=== PATIENT | male | born 1945 | race Caucasian/White ===

== ENCOUNTER 2018-04-21 20:12 | Inpatient (IN) | payer MEDICARE ==
[2018-04-21] MEDS ORDERED: SODIUM CHLORIDE 0.9% 500 ML 500 ML IV STA (20:49)
[2018-04-21] MEDS ORDERED: ONDANSETRON 4 MG/2 ML VIAL IVP STA (21:11)
[2018-04-21] MEDS ORDERED: MORPHINE SULFATE 4 MG/ML SYRINGE IVP STA (21:11)
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
[2018-04-21 22:11] LABS: Anisocytosis Slight; Basophils % (A) 0 %; Eosinophils # (A) 0.1 k/uL (0-0.7); Eosinophils % (A) 1 %; HCT 47.1 % (39.0-53.0); HGB 15.1 gm/dL (13.0-17.5); Lymphocytes # (A) 1.2 k/uL (1.0-4.8); Lymphocytes % (A) 9 %; MCH 26.9 pg (25.0-35.0); MCHC 32.1 g/dL (31.0-37.0); MCV 83.7 fL (80.0-100.0); Mean Platelet Volume 8.6; Monocytes # (A) 0.5 k/uL (0-1.0); Monocytes % (A) 4 %; Neutrophils # (A) 11.2 k/uL (1.3-7.7); Neutrophils % (A) 85 %; Platelet Count 140 k/uL (150-450); RBC 5.63 m/uL (4.30-5.90); RDW 16.4 % (11.5-15.5); WBC 13.2 k/uL (3.8-10.6)
[2018-04-21 22:19] LABS: INR 1.1 (<1.2); Partial Thromboplastin Time 22.9 sec (22.0-30.0); Prothrombin Time 11.3 sec (9.0-12.0)
[2018-04-21 22:28] LABS: ALT 27 U/L (21-72); AST 35 U/L (17-59); Albumin 4.5 g/dL (3.5-5.0); Alkaline Phosphatase 101 U/L (38-126); Amylase 82 U/L (30-110); Anion Gap 15 mmol/L; Blood Urea Nitrogen 17 mg/dL (9-20); Calcium 9.3 mg/dL (8.4-10.2); Carbon Dioxide 20 mmol/L (22-30); Chloride 101 mmol/L (98-107); Glucose 439 mg/dL (74-99); Lipase 361 U/L (23-300); Potassium 4.8 mmol/L (3.5-5.1); Sodium 136 mmol/L (137-145); Total Bilirubin 0.9 mg/dL (0.2-1.3); Total Protein 8.5 g/dL (6.3-8.2)
[2018-04-21] MEDS ORDERED: SODIUM CHLORIDE 0.9% 500 ML 500 ML IV ONE (23:13)
[2018-04-21] MEDS ORDERED: SODIUM CHLORIDE 0.9% 1,000 ML IV ONE (23:13)
--- NOTE | 2018-04-21 23:31 | CT ---
EXAMINATION TYPE: CT abdomen pelvis w con DATE OF EXAM: 04/21/2018 COMPARISON: None HISTORY: nausea and vomitting CT DLP: 2629 mGycm Automated exposure control for dose reduction was used. TECHNIQUE: Helical acquisition of images was performed from the lung bases through the pelvis. CONTRAST: Performed without Oral Contrast and with IV Contrast, patient injected with 100 mL of Isovue 300. FINDINGS: There are small pleural effusions. Heart is enlarged. There is no pericardial effusion. Stomach appears normal. Liver shows no focal defect. Spleen appears normal. There is no pancreatic ma ss. There is no adrenal mass. Kidneys show satisfactory contrast opacification. There is no hydroneph rosis. Ureters are not dilated. There is no retroperitoneal adenopathy. There is 1 cm cortical cyst a nterior left kidney. Bladder distends smoothly with contrast. There is no inguinal hernia. There is no free fluid in the p bri. There is no sign of a pelvic mass. There is small umbilical hernia that contains fat. Appendix appears normal. There is no mesenteric edema. There is no evidence of a bowel obstruction. There are spondylotic changes in the lower lumbar spine. I see no bony destructive process. Bony pelvis is int act. There is no evidence of free air. IMPRESSION: BILATERAL PLEURAL EFFUSIONS. NORMAL APPENDIX.
[2018-04-22] MEDS ORDERED: INSULIN REGULAR 100 UNIT/ML VIAL IV ONE (00:47)
--- NOTE | 2018-04-22 00:54 | XR ---
EXAMINATION TYPE: XR chest 2V DATE OF EXAM: 04/22/2018 COMPARISON: NONE HISTORY: Abdominal pain TECHNIQUE: Frontal and lateral views of the chest are obtained. FINDINGS: Heart appears enlarged. There is no heart failure. There is minimal subsegmental atelectas is. Lungs are clear of consolidation. There is no definite pleural effusion. IMPRESSION: Minimal subsegmental atelectasis. No heart failure seen.
[2018-04-22 01:35] LABS: Appearance,Urine Clear (Clear); Bacteria,Urine Rare /hpf; Bilirubin,Urine Negative (Negative); Blood,Urine Trace (Negative); Glucose,Urine (UA) 4+ (Negative); Leukocyte Esterase,Urine Negative (Negative); Mucus,Urine Rare /hpf; Nitrite,Urine Negative (Negative); PH, Urine 5.5 (5.0-8.0); Protein,Urine 1+ (Negative); RBC,Urine 1 /hpf (0-5); Specific Gravity,Urine 1.033 (1.001-1.035); Squamous Epithelial Cell,Urine <1 /hpf (0-4); Urobilinogen,Urine <2.0 mg/dL (<2.0); WBC,Urine <1 /hpf (0-5)
[2018-04-22] MEDS: INSULIN REGULAR 100 UNIT in SODIUM CHLORIDE 0.9% 100 ML IV SCH ×3 (01:59→17:52)
[2018-04-22 02:37] LABS: Ketones,Urine 2+ (Negative)
[2018-04-22 03:19] LABS: Glucose,Whole Blood 301 mg/dL (75-99)
[2018-04-22] MEDS ORDERED: LORazepam 2 MG/ML INJ IV STA (03:20)
[2018-04-22 03:45] LABS: Anion Gap 13 mmol/L; Blood Urea Nitrogen 18 mg/dL (9-20); Carbon Dioxide 23 mmol/L (22-30); Chloride 103 mmol/L (98-107); Glucose 286 mg/dL (74-99); Phosphorus 2.7 mg/dL (2.5-4.5); Potassium 4.1 mmol/L (3.5-5.1); Sodium 139 mmol/L (137-145)
[2018-04-22 04:20] LABS: Glucose,Whole Blood 224 mg/dL (75-99)
[2018-04-22] MEDS: D5-0.45% NACL WITH KCL 20MEQ/L 1,000 ML IV SCH ×2 (04:59→12:38)
[2018-04-22 05:37] LABS: Glucose,Whole Blood 185 mg/dL (75-99)
[2018-04-22 06:41] LABS: Glucose,Whole Blood 230 mg/dL (75-99)
[2018-04-22 07:45] LABS: Glucose,Whole Blood 165 mg/dL (75-99)
[2018-04-22 09:09] LABS: Anion Gap 11 mmol/L; Blood Urea Nitrogen 21 mg/dL (9-20); Carbon Dioxide 24 mmol/L (22-30); Chloride 105 mmol/L (98-107); Glucose 169 mg/dL (74-99); Phosphorus 1.9 mg/dL (2.5-4.5); Potassium 3.4 mmol/L (3.5-5.1); Sodium 140 mmol/L (137-145)
[2018-04-22] MEDS: HYDROmorphone 0.5 MG/0.5 ML SYRINGE IVP PRN ×2 (09:16→14:22)
[2018-04-22] MEDS ORDERED: Potassium Replacement Protocol 1 EACH MISC MISCELLANE PRN (09:20)
[2018-04-22] MEDS: SODIUM CHLORIDE 0.9% 1,000 ML IV SCH ×5 (09:21→18:32)
[2018-04-22 09:26] LABS: Glucose,Whole Blood 161 mg/dL (75-99)
[2018-04-22] MEDS: POTASSIUM CHLORIDE ER 20 MEQ TAB.ER PO SCH ×2 (12:38→13:38)
[2018-04-22 12:47] LABS: Glucose,Whole Blood 142 mg/dL (75-99)
[2018-04-22] MEDS ORDERED: METOPROLOL TARTRATE 25 MG TAB PO SCH (13:30)
[2018-04-22 13:40] LABS: Glucose,Whole Blood 134 mg/dL (75-99)
[2018-04-22 13:50] LABS: ALT 23 U/L (21-72); AST 29 U/L (17-59); Albumin 3.9 g/dL (3.5-5.0); Alkaline Phosphatase 68 U/L (38-126); Anion Gap 12 mmol/L; Blood Urea Nitrogen 23 mg/dL (9-20); Carbon Dioxide 24 mmol/L (22-30); Chloride 105 mmol/L (98-107); Glucose 139 mg/dL (74-99); Potassium 3.4 mmol/L (3.5-5.1); Sodium 141 mmol/L (137-145); Total Bilirubin 0.8 mg/dL (0.2-1.3); Total Protein 7.8 g/dL (6.3-8.2)
[2018-04-22 14:29] LABS: Glucose,Whole Blood 153 mg/dL (75-99)
[2018-04-22] MEDS ORDERED: ACETAMINOPHEN TAB 500 MG TAB PO PRN (15:20)
[2018-04-22] MEDS ORDERED: ALPRAZolam 0.25 MG TAB PO PRN (15:20)
[2018-04-22] MEDS ORDERED: TEMAZEPAM 15 MG CAP PO PRN (15:20)
[2018-04-22 16:13] LABS: Glucose,Whole Blood 155 mg/dL (75-99)
[2018-04-22] MEDS: FUROSEMIDE 40 MG TAB PO SCH (16:14)
[2018-04-22] MEDS: INSULIN DETEMIR (LEVEMIR) 100 UNIT/ML SYR SQ SCH ×2 (16:15→20:59)
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
[2018-04-22] MEDS: DILTIAZEM 50 MG in SODIUM CHLORIDE 0.9% 40 ML IV SCH ×2 (16:26→21:09)
[2018-04-22] MEDS ORDERED: HYDROmorphone 0.5 MG/0.5 ML SYRINGE IVP PRN (17:44)
[2018-04-22] MEDS: PANTOPRAZOLE 40 MG/10 ML VIAL IVP SCH (17:49)
[2018-04-22 17:51] LABS: Glucose,Whole Blood 198 mg/dL (75-99)
[2018-04-22] MEDS: CARVEDILOL 12.5 MG TAB PO SCH (17:52)
[2018-04-22] MEDS: metFORMIN 500 MG TAB PO SCH (17:52)
[2018-04-22] MEDS: INSULIN ASPART (NovoLOG) 100 UNIT/ML VIAL SQ SCH ×2 (18:00→21:00)
[2018-04-22 18:36] LABS: Hemoglobin A1C 12.7 % (4.0-6.0)
[2018-04-22] MEDS: HYDROcodone/APAP 5-325MG 1 EACH TAB PO PRN (20:59)
[2018-04-22] MEDS: glipiZIDE 10 MG TAB PO SCH (20:59)
[2018-04-22] MEDS: ATORVASTATIN 10 MG TAB PO SCH (20:59)
[2018-04-22 21:03] LABS: Glucose,Whole Blood 258 mg/dL (75-99)
[2018-04-22] MEDS ORDERED: POTASSIUM CHLORIDE ER 20 MEQ TAB.ER PO STA (21:30)
[2018-04-23 02:40] LABS: Amphetamine Screen,Urine Not Detected (NotDetected); Barbiturate Screen,Urine Not Detected (NotDetected); Benzodiazepines Screen,Urine Not Detected (NotDetected); Cocaine Screen,Urine Not Detected (NotDetected); Methadone Screen, Urine Not Detected (NotDetected); Opiate Screen,Urine Detected (NotDetected); Oxycodone Screen, Urine Not Detected (NotDetected); Phencyclidine Screen,Urine Not Detected (NotDetected); Tricyclic Antidepressant,Urine Not Detected (NotDetected); Urn Cannabinoid Scrn Not Detected (NotDetected)
[2018-04-23 06:44] LABS: Glucose,Whole Blood 251 mg/dL (75-99)
[2018-04-23] MEDS: CARVEDILOL 12.5 MG TAB PO SCH ×2 (06:58→17:42)
[2018-04-23] MEDS: INSULIN ASPART (NovoLOG) 100 UNIT/ML VIAL SQ SCH ×4 (06:58→21:04)
[2018-04-23 07:05] LABS: Anisocytosis Slight; Basophils % (A) 0 %; Eosinophils % (A) 0 %; HCT 42.9 % (39.0-53.0); HGB 13.5 gm/dL (13.0-17.5); Lymphocytes # (A) 1.2 k/uL (1.0-4.8); Lymphocytes % (A) 7 %; MCH 26.7 pg (25.0-35.0); MCHC 31.5 g/dL (31.0-37.0); MCV 84.6 fL (80.0-100.0); Mean Platelet Volume 9.4; Monocytes # (A) 1.3 k/uL (0-1.0); Monocytes % (A) 8 %; Neutrophils # (A) 14.9 k/uL (1.3-7.7); Neutrophils % (A) 84 %; RBC 5.07 m/uL (4.30-5.90); RDW 16.5 % (11.5-15.5); WBC 17.7 k/uL (3.8-10.6)
[2018-04-23 07:13] LABS: Anion Gap 11 mmol/L; Blood Urea Nitrogen 33 mg/dL (9-20); Calcium 8.5 mg/dL (8.4-10.2); Carbon Dioxide 20 mmol/L (22-30); Chloride 105 mmol/L (98-107); Glucose 247 mg/dL (74-99); Potassium 5.1 mmol/L (3.5-5.1); Sodium 136 mmol/L (137-145)
[2018-04-23 07:50] LABS: Platelet Count 137 k/uL (150-450)
[2018-04-23] MEDS ORDERED: RIVAROXABAN 20 MG TAB PO SCH (09:00)
[2018-04-23] MEDS: metFORMIN 500 MG TAB PO SCH ×2 (09:07→17:42)
[2018-04-23] MEDS: glipiZIDE 10 MG TAB PO SCH ×2 (09:08→21:47)
[2018-04-23] MEDS: PANTOPRAZOLE 40 MG/10 ML VIAL IVP SCH ×2 (09:15→21:47)
[2018-04-23] MEDS: SPIRONOLACTONE 25 MG TAB PO SCH (09:15)
[2018-04-23] MEDS: FUROSEMIDE 40 MG TAB PO SCH ×2 (09:15→16:27)
[2018-04-23] MEDS: INSULIN DETEMIR (LEVEMIR) 100 UNIT/ML SYR SQ SCH ×2 (09:16→21:47)
[2018-04-23 11:47] LABS: Glucose,Whole Blood 171 mg/dL (75-99)
[2018-04-23 12:31] LABS: Glucose,Whole Blood 135 mg/dL (75-99)
[2018-04-23] MEDS: SODIUM CHLORIDE 0.9% 1,000 ML IV SCH (12:31)
[2018-04-23] MEDS: DILTIAZEM 50 MG in SODIUM CHLORIDE 0.9% 40 ML IV SCH ×2 (12:32→21:05)
[2018-04-23 13:16] LABS: Anisocytosis Slight; Basophils # (A) 0.1 k/uL (0-0.2); Basophils % (A) 0 %; Eosinophils % (A) 0 %; HCT 41.6 % (39.0-53.0); HGB 12.3 gm/dL (13.0-17.5); Hypochromasia Moderate; Lymphocytes # (A) 1.9 k/uL (1.0-4.8); Lymphocytes % (A) 11 %; MCH 25.8 pg (25.0-35.0); MCHC 29.7 g/dL (31.0-37.0); Mean Platelet Volume 9.4; Monocytes # (A) 1.4 k/uL (0-1.0); Monocytes % (A) 8 %; Neutrophils # (A) 14.1 k/uL (1.3-7.7); Neutrophils % (A) 79 %; Platelet Count 141 k/uL (150-450); RBC 4.78 m/uL (4.30-5.90); RDW 16.6 % (11.5-15.5); WBC 17.8 k/uL (3.8-10.6)
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
[2018-04-23 17:54] LABS: Glucose,Whole Blood 123 mg/dL (75-99)
[2018-04-23 20:50] LABS: Glucose,Whole Blood 108 mg/dL (75-99)
[2018-04-23] MEDS: ATORVASTATIN 10 MG TAB PO SCH (21:47)
[2018-04-24 06:02] LABS: Glucose,Whole Blood 42 mg/dL (75-99)
[2018-04-24 06:16] LABS: Anisocytosis Slight; HCT 36.9 % (39.0-53.0); HGB 11.6 gm/dL (13.0-17.5); MCH 25.8 pg (25.0-35.0); MCHC 31.4 g/dL (31.0-37.0); MCV 82.3 fL (80.0-100.0); Mean Platelet Volume 9.5; Platelet Count 140 k/uL (150-450); RBC 4.48 m/uL (4.30-5.90); RDW 16.6 % (11.5-15.5); WBC 13.5 k/uL (3.8-10.6)
[2018-04-24 06:20] LABS: Glucose,Whole Blood 47 mg/dL (75-99)
[2018-04-24] MEDS: DEXTROSE 50%-WATER 50 ML SYRINGE IVP STA ×2 (06:22→13:26)
[2018-04-24 06:23] LABS: Calcium 8.7 mg/dL (8.4-10.2)
[2018-04-24 06:38] LABS: Glucose,Whole Blood 120 mg/dL (75-99)
[2018-04-24] MEDS: INSULIN ASPART (NovoLOG) 100 UNIT/ML VIAL SQ SCH ×4 (06:42→20:39)
[2018-04-24] MEDS: CARVEDILOL 12.5 MG TAB PO SCH ×2 (06:45→18:10)
[2018-04-24 06:48] LABS: Band Neutrophils % 24 %; Lymphocytes # (M) 2.57 k/uL (1.0-4.8); Metamyelocytes # (M) 0.41 k/uL (0); Metamyelocytes % 3 %; Monocytes # (M) 1.22 k/uL (0-1.0); Neutrophils % (M) 45 %; Nucleated Red Blood Cells 0 /100 WBC (0-0); Total Cells Counted 100
[2018-04-24 06:58] LABS: Large Platelets Present
[2018-04-24] MEDS: DILTIAZEM 50 MG in SODIUM CHLORIDE 0.9% 40 ML IV SCH (09:23)
[2018-04-24] MEDS: SODIUM CHLORIDE 0.9% 1,000 ML IV SCH (09:23)
[2018-04-24] MEDS: FUROSEMIDE 40 MG TAB PO SCH ×2 (09:25→18:10)
[2018-04-24] MEDS: SPIRONOLACTONE 25 MG TAB PO SCH (09:25)
[2018-04-24] MEDS: PANTOPRAZOLE 40 MG/10 ML VIAL IVP SCH ×2 (09:25→20:45)
[2018-04-24 09:38] LABS: Glucose,Whole Blood 103 mg/dL (75-99)
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
[2018-04-24 12:16] LABS: Glucose,Whole Blood 66 mg/dL (75-99)
[2018-04-24 12:16] LABS: Glucose,Whole Blood 72 mg/dL (75-99)
[2018-04-24 13:45] LABS: Glucose,Whole Blood 67 mg/dL (75-99)
[2018-04-24 14:13] LABS: Anisocytosis Slight; HCT 34.8 % (39.0-53.0); HGB 11.3 gm/dL (13.0-17.5); MCH 27.5 pg (25.0-35.0); MCHC 32.6 g/dL (31.0-37.0); MCV 84.2 fL (80.0-100.0); Mean Platelet Volume 9.4; Platelet Count 112 k/uL (150-450); RBC 4.13 m/uL (4.30-5.90); RDW 16.8 % (11.5-15.5); WBC 10.9 k/uL (3.8-10.6)
[2018-04-24 14:18] LABS: Glucose,Whole Blood 139 mg/dL (75-99)
[2018-04-24 15:09] LABS: Band Neutrophils % 9 %; Eosinophils # (M) 0.11 k/uL (0-0.7); Large Platelets Present; Lymphocytes # (M) 1.96 k/uL (1.0-4.8); Metamyelocytes # (M) 0.11 k/uL (0); Metamyelocytes % 1 %; Monocytes # (M) 0.87 k/uL (0-1.0); Neutrophils % (M) 64 %; Nucleated Red Blood Cells 0 /100 WBC (0-0); Poikilocytosis (M) Present; Total Cells Counted 200
[2018-04-24 17:13] LABS: Glucose,Whole Blood 79 mg/dL (75-99)
[2018-04-24] MEDS: metFORMIN 500 MG TAB PO SCH (17:32)
[2018-04-24 19:06] LABS: Anisocytosis Slight; HCT 35.2 % (39.0-53.0); HGB 11.2 gm/dL (13.0-17.5); MCH 26.4 pg (25.0-35.0); MCHC 31.8 g/dL (31.0-37.0); Mean Platelet Volume 9.3; Platelet Count 118 k/uL (150-450); RBC 4.25 m/uL (4.30-5.90); RDW 16.5 % (11.5-15.5); WBC 10.5 k/uL (3.8-10.6)
[2018-04-24 20:09] LABS: Band Neutrophils % 15 %; Basophils # (M) 0.11 k/uL (0-0.2); Eosinophils # (M) 0.11 k/uL (0-0.7); Lymphocytes # (M) 3.15 k/uL (1.0-4.8); Metamyelocytes # (M) 0.11 k/uL (0); Metamyelocytes % 1 %; Monocytes # (M) 0.74 k/uL (0-1.0); Neutrophils % (M) 47 %; Nucleated Red Blood Cells 0 /100 WBC (0-0); Total Cells Counted 200
[2018-04-24 20:10] LABS: Large Platelets Present
[2018-04-24] MEDS: ATORVASTATIN 10 MG TAB PO SCH (20:45)
[2018-04-24 20:46] LABS: Glucose,Whole Blood 63 mg/dL (75-99)
[2018-04-24] MEDS: INSULIN DETEMIR (LEVEMIR) 100 UNIT/ML SYR SQ SCH (21:58)
[2018-04-24] MEDS: glipiZIDE 10 MG TAB PO SCH (21:59)
[2018-04-24 22:10] LABS: Glucose,Whole Blood 75 mg/dL (75-99)
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
[2018-04-24] MEDS ORDERED: DEXTROSE 5%-0.9% NACL 1,000 ML IV SCH (23:00)
[2018-04-24] MEDS: DEXTROSE 5% IN WATER 1,000 ML IV SCH (23:18)
[2018-04-25 00:05] LABS: Glucose,Whole Blood 82 mg/dL (75-99)
[2018-04-25 04:26] LABS: Glucose,Whole Blood 79 mg/dL (75-99)
[2018-04-25] MEDS: SODIUM CHLORIDE 0.9% 1,000 ML IV SCH (05:12)
[2018-04-25] MEDS: INSULIN ASPART (NovoLOG) 100 UNIT/ML VIAL SQ SCH ×4 (06:26→21:57)
[2018-04-25 06:27] LABS: Glucose,Whole Blood 87 mg/dL (75-99)
[2018-04-25] MEDS: metFORMIN 500 MG TAB PO SCH ×2 (06:27→15:19)
[2018-04-25] MEDS: CARVEDILOL 12.5 MG TAB PO SCH (06:52)
[2018-04-25 07:45] LABS: Anisocytosis Slight; HCT 38.4 % (39.0-53.0); HGB 11.9 gm/dL (13.0-17.5); MCV 83.6 fL (80.0-100.0); Mean Platelet Volume 9.6; Platelet Count 125 k/uL (150-450); RBC 4.59 m/uL (4.30-5.90); RDW 16.5 % (11.5-15.5); WBC 9.2 k/uL (3.8-10.6)
[2018-04-25 07:59] LABS: Calcium 8.6 mg/dL (8.4-10.2); Potassium 4.4 mmol/L (3.5-5.1)
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
[2018-04-25 08:44] LABS: Band Neutrophils % 18 %; Large Platelets Present; Lymphocytes # (M) 1.66 k/uL (1.0-4.8); Metamyelocytes # (M) 0.28 k/uL (0); Metamyelocytes % 3 %; Monocytes # (M) 1.01 k/uL (0-1.0); Neutrophils % (M) 51 %; Nucleated Red Blood Cells 0 /100 WBC (0-0); Total Cells Counted 200
[2018-04-25 08:45] LABS: Poikilocytosis (M) Present; Toxic Granulation Present
[2018-04-25 09:25] LABS: Glucose,Whole Blood 95 mg/dL (75-99)
[2018-04-25] MEDS: DEXTROSE 5% IN WATER 1,000 ML IV SCH (09:35)
[2018-04-25] MEDS: PANTOPRAZOLE 40 MG/10 ML VIAL IVP SCH ×2 (09:35→21:57)
[2018-04-25] MEDS: SPIRONOLACTONE 25 MG TAB PO SCH (09:35)
[2018-04-25 12:13] LABS: Glucose,Whole Blood 115 mg/dL (75-99)
--- NOTE | 2018-04-25 13:16 | P.PN ---
Subjective Progress Note Date: 04/25/18 Principal diagnosis: GI bleed No bloody bowel movements 48 hours per nursing. Patient overall affect this morning is flat but alert sleepy. Hemoglobin 11.2. Clear liquid started. BUN 54 . No emesis. Objective - Vital Signs Vital signs: Vital Signs Temp 97.7 F 04/25/18 08:00 Pulse 104 H 04/25/18 12:00 Resp 22 04/25/18 12:00 BP 134/68 04/25/18 12:00 Pulse Ox 99 04/25/18 12:00 Intake & Output 04/24/18 04/25/18 04/25/18 18:59 06:59 18:59 Intake Total 50 1075 Output Total 2850 1000 Balance -2800 75 Intake: Intake, IV Titration 50 1025 Amount Dextrose 5% in Water 1, 575 000 ml @ 75 mls/hr IV . [id number] [facility] Rx#:[id number] Diltiazem 50 mg In Sodium 50 Chloride 0.9% 40 ml @ 5 MG/HR 5 mls/hr IV .Q10H [facility] Rx#:[id number] Sodium Chloride 0.9% 1, 450 000 ml @ 50 mls/hr IV . Q20H [facility] Rx#:[id number] Oral 50 Output: Urine 850 Stool 2000 1000 Other: # Voids 1 # Bowel Movements 1 - Exam General appearance: The patient is alert, oriented, flat affect sleepy. HET: Head is normocephalic and atraumatic. Pupils are equal and reactive. Oropharynx is clear without lesions. Neck: Supple without lymphadenopathy. Trachea midline. Heart: S1 S2. Lungs: No crackles or wheezes are heard. Abdomen: Soft, very mild tenderness to the left abdomen, nondistended with bowel sounds. No peritoneal signs. No palpable organomegaly or masses. Extremities: Normal skin color and turgor. No cyanosis, rash, ulceration, clubbing, or edema. Radial and pedal pulses are 2/4 bilaterally. Neurological: No focal deficits. Strength and sensation are grossly intact. - Labs CBC & Chem 7: 04/26/18 05:59 04/26/18 05:59 Labs: Abnormal Lab Results - Last 24 Hours (Table) 04/24/18 04/24/18 04/24/18 Range/Units 13:25 13:29 14:15 WBC 10.9 H (3.8-10.6) k/uL RBC 4.13 L (4.30-5.90) m/uL Hgb 11.3 L (13.0-17.5) gm/dL Hct 34.8 L (39.0-53.0) % RDW 16.8 H (11.5-15.5) % Plt Count 112 L (150-450) k/uL Neutrophils # (Manual) 7.90 H (1.3-7.7) k/uL Monocytes # (Manual) (0-1.0) k/uL Metamyelocytes # (Man) 0.11 H (0) k/uL Sodium (137-145) mmol/L Carbon Dioxide (22-30) mmol/L BUN (9-20) mg/dL POC Glucose (mg/dL) 67 L 139 H (75-99) mg/dL 04/24/18 04/24/18 04/25/18 Range/Units 18:22 20:45 07:11 WBC (3.8-10.6) k/uL RBC 4.25 L (4.30-5.90) m/uL Hgb 11.2 L 11.9 L (13.0-17.5) gm/dL Hct 35.2 L 38.4 L (39.0-53.0) % RDW 16.5 H 16.5 H (11.5-15.5) % Plt Count 118 L 125 L (150-450) k/uL Neutrophils # (Manual) (1.3-7.7) k/uL Monocytes # (Manual) 1.01 H (0-1.0) k/uL Metamyelocytes # (Man) 0.11 H 0.28 H (0) k/uL Sodium (137-145) mmol/L Carbon Dioxide (22-30) mmol/L BUN (9-20) mg/dL POC Glucose (mg/dL) 63 L (75-99) mg/dL 04/25/18 04/25/18 Range/Units 07:11 12:00 WBC (3.8-10.6) k/uL RBC (4.30-5.90) m/uL Hgb (13.0-17.5) gm/dL Hct (39.0-53.0) % RDW (11.5-15.5) % Plt Count (150-450) k/uL Neutrophils # (Manual) (1.3-7.7) k/uL Monocytes # (Manual) (0-1.0) k/uL Metamyelocytes # (Man) (0) k/uL Sodium 134 L (137-145) mmol/L Carbon Dioxide 18 L (22-30) mmol/L BUN 43 H (9-20) mg/dL POC Glucose (mg/dL) 115 H (75-99) mg/dL Assessment and Plan (1) GI bleed Narrative/Plan: 72-year-old gentleman admitted with acute left-sided abdominal pain A. fib RVR acute rectal bleeding 3 days mixed red black with acute blood loss anemia possible ischemic colitis possible inflammatory colitis possible colonic diverticular bleed exacerbated by anticoagulation. Upper GI source cannot be entirely excluded. Current Visit: Yes Status: Acute Code(s): K92.2 - GASTROINTESTINAL HEMORRHAGE, UNSPECIFIED SNOMED Code(s): 64014170 (2) Atrial fibrillation with RVR Current Visit: Yes Status: Acute Code(s): I48.91 - UNSPECIFIED ATRIAL FIBRILLATION SNOMED Code(s): 224884520393958 (3) Diabetes mellitus Current Visit: Yes Status: Acute Code(s): E11.9 - TYPE 2 DIABETES MELLITUS WITHOUT COMPLICATIONS SNOMED Code(s): 63434221 (4) Acute blood loss anemia Current Visit: Yes Status: Acute Code(s): D62 - ACUTE POSTHEMORRHAGIC ANEMIA SNOMED Code(s): 235601796 (5) DKA (diabetic ketoacidoses) Current Visit: Yes Status: Acute Code(s): E13.10 - OTH DIABETES MELLITUS WITH KETOACIDOSIS WITHOUT COMA SNOMED Code(s): 946378111 (6) History of CHF (congestive heart failure) Current Visit: Yes Status: Acute Code(s): Z86.79 - PERSONAL HISTORY OF OTHER DISEASES OF THE CIRCULATORY SYSTEM SNOMED Code(s): 830984377 Plan: 1. Clear liquids. EGD colonoscopy discussed however patient affect is flat doesn't ambulate with intermittent episodes of elevated respiratory rate. Patient is not a candidate for endoscopy at this time suspect he will not tolerate and or drink prep. CBC in a.m. Protonix 40 mg twice daily. Will continue to follow. Assessment and plan a care discussed with Dr. Myers
--- NOTE | 2018-04-25 14:03 | XR ---
EXAMINATION TYPE: XR chest 1V portable DATE OF EXAM: 04/25/2018 COMPARISON: 04/22/2018 HISTORY: Tachypnea TECHNIQUE: Single frontal view of the chest is obtained. FINDINGS: There is no focal air space opacity, pleural effusion, or pneumothorax seen. The cardiac silhouette size is mildly enlarged. The osseous structures are intact. IMPRESSION: No acute process.
--- NOTE | 2018-04-25 16:03 | P.PN ---
Subjective Progress Note Date: 04/25/18 This is a pleasant 72-year-old gentleman who presented to the hospital with DKA. He also had a lower GI bleeding. He has history of diabetes , hyperlipidemia. Cardiology was requested initially to see the patient because of atrial fibrillation. Patient continues to be in atrial fibrillation today, heart rate in the low 100s. We'll discontinue the Coreg and start the patient on metoprolol 100 mg by mouth twice a day today. Blood pressure 113/ 60. White blood cell count 9.2, hemoglobin 11.9, platelet count 125. Sodium 134, potassium 4.4, BUN 43, creatinine 1.1. Objective - Vital Signs Vital signs: Vital Signs Temp 97.7 F 04/25/18 08:00 Pulse 104 H 04/25/18 15:17 Resp 22 04/25/18 15:17 BP 113/68 04/25/18 15:17 Pulse Ox 94 L 04/25/18 15:17 Intake & Output 04/24/18 04/25/18 04/25/18 18:59 06:59 18:59 Intake Total 50 1075 600 Output Total 2850 1000 Balance -2800 75 600 Intake: Intake, IV Titration 50 1025 Amount Dextrose 5% in Water 1, 575 000 ml @ 75 mls/hr IV . [id number] [facility] Rx#:[id number] Diltiazem 50 mg In Sodium 50 Chloride 0.9% 40 ml @ 5 MG/HR 5 mls/hr IV .Q10H [facility] Rx#:[id number] Sodium Chloride 0.9% 1, 450 000 ml @ 50 mls/hr IV . Q20H [facility] Rx#:[id number] Oral 50 600 Output: Urine 850 Stool 2000 1000 Other: # Voids 1 1 # Bowel Movements 1 1 - Exam PHYSICAL EXAMINATION: GENERAL: 72-year-old gentleman in no acute distress at the time of my examination HEENT: Head is atraumatic, normocephalic. Pupils equal, round. Sclera anicteric. Conjunctiva are clear. Mucous membranes of the mouth are moist. Neck is supple. There is no elevated jugular venous pressure.] bruit is heard. HEART EXAMINATION: [Heart S1, S2 normal. No murmur or gallop heard.] CHEST EXAMINATION:[ Lungs are clear to auscultation and precussion. No chest wall tenderness is noted on palpation or with deep breathing.] ABDOMEN: [ Soft, nontender. Bowel sounds are heard. No organomegaly noted]. EXTREMITIES:[ 2+ peripheral pulses with no evidence of peripheral edema and no calf tenderness noted]. NEUROLOGIC [patient is awake, alert and oriented ?-3.] . - Labs CBC & Chem 7: 04/25/18 07:11 04/25/18 07:11 Labs: Abnormal Lab Results - Last 24 Hours (Table) 04/24/18 04/24/18 04/25/18 Range/Units 18:22 20:45 07:11 RBC 4.25 L (4.30-5.90) m/uL Hgb 11.2 L 11.9 L (13.0-17.5) gm/dL Hct 35.2 L 38.4 L (39.0-53.0) % RDW 16.5 H 16.5 H (11.5-15.5) % Plt Count 118 L 125 L (150-450) k/uL Monocytes # (Manual) 1.01 H (0-1.0) k/uL Metamyelocytes # (Man) 0.11 H 0.28 H (0) k/uL Sodium (137-145) mmol/L Carbon Dioxide (22-30) mmol/L BUN (9-20) mg/dL POC Glucose (mg/dL) 63 L (75-99) mg/dL 04/25/18 04/25/18 Range/Units 07:11 12:00 RBC (4.30-5.90) m/uL Hgb (13.0-17.5) gm/dL Hct (39.0-53.0) % RDW (11.5-15.5) % Plt Count (150-450) k/uL Monocytes # (Manual) (0-1.0) k/uL Metamyelocytes # (Man) (0) k/uL Sodium 134 L (137-145) mmol/L Carbon Dioxide 18 L (22-30) mmol/L BUN 43 H (9-20) mg/dL POC Glucose (mg/dL) 115 H (75-99) mg/dL Assessment and Plan Plan: Assessment and plan #1 acute DKA #2 lower GI bleed with blood loss anemia, Xarelto 1 #3 paroxysmal atrial fibrillation, heart rate in the low 100s today, we will increase the dose of Lopressor 200 mg twice a day #4 diabetes #5 hyperlipidemia Plan Increase Lopressor to 100 mg by mouth twice a day today. Continue the rest of the medications. DNP note has been reviewed, I agree with a documented findings and plan of care. Patient was seen and examined.
[2018-04-25 16:53] LABS: Glucose,Whole Blood 178 mg/dL (75-99)
[2018-04-25] MEDS: METOPROLOL TARTRATE 50 MG TAB PO SCH (17:30)
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
--- NOTE | 2018-04-25 19:16 | CT ---
EXAMINATION TYPE: CT brain wo con DATE OF EXAM: 04/25/2018 COMPARISON: None HISTORY: CONFUSION CT DLP: 1062.4 mGycm Automated exposure control for dose reduction was used. FINDINGS: There is cerebral cortical atrophy. There is no mass effect nor midline shift. There is no evidence o f intracranial hemorrhage. There is 3 cm area of hypodensity left lateral occipital lobe consistent w ith old cortical infarct. There is minimal white matter hypodensity in the posterior parietal lobes. Calvarium is intact. 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 NO ACUTE INTRACRANIAL ABNORMALITY.
[2018-04-25] MEDS: IPRATROPIUM-ALBUTEROL 3 ML NEB INHALATION SCH (20:37)
[2018-04-25 21:16] LABS: Glucose,Whole Blood 156 mg/dL (75-99)
[2018-04-25] MEDS: ATORVASTATIN 10 MG TAB PO SCH (21:57)
[2018-04-26 03:15] LABS: Glucose,Whole Blood 135 mg/dL (75-99)
[2018-04-26] MEDS: DEXTROSE 5% IN WATER 1,000 ML IV SCH ×2 (05:21→20:55)
[2018-04-26 05:53] LABS: Glucose,Whole Blood 128 mg/dL (75-99)
[2018-04-26] MEDS: SODIUM CHLORIDE 0.9% 1,000 ML IV SCH ×2 (06:10→21:02)
[2018-04-26] MEDS: METOPROLOL TARTRATE 50 MG TAB PO SCH ×2 (06:10→19:07)
[2018-04-26] MEDS: INSULIN ASPART (NovoLOG) 100 UNIT/ML VIAL SQ SCH ×4 (06:11→21:02)
[2018-04-26 06:21] LABS: Anisocytosis Slight; HCT 34.9 % (39.0-53.0); HGB 11.2 gm/dL (13.0-17.5); MCH 26.3 pg (25.0-35.0); MCHC 32.1 g/dL (31.0-37.0); MCV 81.9 fL (80.0-100.0); Mean Platelet Volume 9.3; Platelet Count 123 k/uL (150-450); RBC 4.27 m/uL (4.30-5.90); RDW 16.5 % (11.5-15.5); WBC 12.2 k/uL (3.8-10.6)
[2018-04-26 06:37] LABS: Calcium 8.3 mg/dL (8.4-10.2); Potassium 4.2 mmol/L (3.5-5.1)
[2018-04-26 06:51] LABS: Band Neutrophils % 30 %; Eosinophils # (M) 0.12 k/uL (0-0.7); Lymphocytes # (M) 1.46 k/uL (1.0-4.8); Metamyelocytes # (M) 0.37 k/uL (0); Metamyelocytes % 3 %; Monocytes # (M) 1.22 k/uL (0-1.0); Myelocytes # (M) 0.12 k/uL (0); Myelocytes % 1 %; Neutrophils % (M) 43 %; Nucleated Red Blood Cells 0 /100 WBC (0-0); Total Cells Counted 100
[2018-04-26 06:52] LABS: Large Platelets Present
[2018-04-26] MEDS: metFORMIN 500 MG TAB PO SCH ×2 (06:58→19:07)
[2018-04-26] MEDS: PANTOPRAZOLE 40 MG/10 ML VIAL IVP SCH ×2 (09:39→21:02)
[2018-04-26] MEDS: SPIRONOLACTONE 25 MG TAB PO SCH (09:39)
[2018-04-26] MEDS: IPRATROPIUM-ALBUTEROL 3 ML NEB INHALATION SCH ×4 (10:25→20:53)
[2018-04-26 12:07] LABS: Glucose,Whole Blood 155 mg/dL (75-99)
[2018-04-26 17:25] LABS: Glucose,Whole Blood 154 mg/dL (75-99)
--- NOTE | 2018-04-26 18:38 | ECHOF ---
Referral Reason:afib MEASUREMENTS -------- HEIGHT: 177.8 cm WEIGHT: 129.7 kg BP: 98/53 RVIDd: 3.5 cm (< 3.3) IVSd: 1.4 cm (0.6 - 1.1) LVIDd: 4.3 cm (3.9 - 5.3) LVPWd: 1.4 cm (0.6 - 1.1) IVSs: 1.6 cm LVIDs: 3.2 cm LVPWs: 1.8 cm LA Diam: 4.8 cm (2.7 - 3.8) Ao Diam: 2.9 cm (2.0 - 3.7) AV Cusp: 1.5 cm (1.5 - 2.6) LA Diam: 4.8 cm (2.7 - 3.8) EPSS: 0.5 cm RAP: 5.00 mmHg RVSP: 33.64 mmHg MV EF SLOPE: 96.21 mm/s (70 - 150) MV EXCURSION: 1.91 cm (> 18.000) FINDINGS -------- Atrial fibrillation. This was a technically difficult study with suboptimal views. The left ventricular size is normal. There is moderate concentric left ventricular hypertrophy. O verall left ventricular systolic function is low-normal with, an EF between 50 - 55 %. The right ventricle is mildly enlarged. The left atrium is moderately dilated. RA appears enlarged. 4 ml of Lumason was utilized for enhancement of images. There is mild to moderate aortic valve sclerosis. There is no evidence of aortic regurgitation. T here is no evidence of aortic stenosis. The mitral valve leaflets are mildly thickened. Mild mitral regurgitation is present. Mild tricuspid regurgitation present. There is borderline pulmonary hypertension. The right ventr icular systolic pressure, as measured by Doppler, is 33.64mmHg. The pulmonic valve was not well visualized. The aortic root size is normal. IVC Not well visulized. There is no pericardial effusion. CONCLUSIONS -------- 1. Atrial fibrillation. 2. This was a technically difficult study with suboptimal views. 3. The left ventricular size is normal. 4. There is moderate concentric left ventricular hypertrophy. 5. Overall left ventricular systolic function is low-normal with, an EF between 50 - 55 %. 6. The right ventricle is mildly enlarged. 7. The left atrium is moderately dilated. 8. RA appears enlarged. 9. 4 ml of Lumason was utilized for enhancement of images. 10. There is mild to moderate aortic valve sclerosis. 11. The mitral valve leaflets are mildly thickened. 12. Mild mitral regurgitation is present. 13. Mild tricuspid regurgitation present. 14. There is borderline pulmonary hypertension. 15. The right ventricular systolic pressure, as measured by Doppler, is 33.64mmHg. 16. The pulmonic valve was not well visualized. 17. The aortic root size is normal. 18. IVC Not well visulized. 19. There is no pericardial effusion. ELECTRICIAN SECOND: Popeye Santos RDCS
[2018-04-26 20:53] LABS: Glucose,Whole Blood 219 mg/dL (75-99)
[2018-04-26] MEDS: ATORVASTATIN 10 MG TAB PO SCH (21:02)
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
[2018-04-27] MEDS: DEXTROSE 5% IN WATER 1,000 ML IV SCH ×2 (05:15→17:50)
[2018-04-27] MEDS: METOPROLOL TARTRATE 50 MG TAB PO SCH ×2 (05:22→17:51)
[2018-04-27] MEDS: HYDROcodone/APAP 5-325MG 1 EACH TAB PO PRN ×2 (05:27→17:51)
[2018-04-27 06:19] LABS: Glucose,Whole Blood 220 mg/dL (75-99)
[2018-04-27 07:31] LABS: Glucose,Whole Blood 252 mg/dL (75-99)
[2018-04-27 07:35] LABS: Anisocytosis Slight; HCT 37.9 % (39.0-53.0); HGB 11.8 gm/dL (13.0-17.5); MCH 26.2 pg (25.0-35.0); MCHC 31.1 g/dL (31.0-37.0); MCV 84.2 fL (80.0-100.0); Mean Platelet Volume 9.4; Platelet Count 160 k/uL (150-450); RBC 4.51 m/uL (4.30-5.90); RDW 16.6 % (11.5-15.5); WBC 19.1 k/uL (3.8-10.6)
[2018-04-27 07:52] LABS: Calcium 8.4 mg/dL (8.4-10.2); Potassium 4.2 mmol/L (3.5-5.1)
[2018-04-27] MEDS: IPRATROPIUM-ALBUTEROL 3 ML NEB INHALATION SCH ×4 (08:16→19:09)
[2018-04-27] MEDS: PANTOPRAZOLE 40 MG/10 ML VIAL IVP SCH ×2 (08:45→20:47)
[2018-04-27] MEDS: INSULIN ASPART (NovoLOG) 100 UNIT/ML VIAL SQ SCH ×4 (08:45→20:47)
[2018-04-27] MEDS: SPIRONOLACTONE 25 MG TAB PO SCH (08:45)
[2018-04-27 09:04] LABS: Band Neutrophils % 13 %; Lymphocytes # (M) 1.91 k/uL (1.0-4.8); Monocytes # (M) 1.15 k/uL (0-1.0); Neutrophils % (M) 71 %; Nucleated Red Blood Cells 0 /100 WBC (0-0); Poikilocytosis (M) Present; Total Cells Counted 100
[2018-04-27 11:00] LABS: Glucose,Whole Blood 257 mg/dL (75-99)
[2018-04-27 17:15] LABS: Glucose,Whole Blood 270 mg/dL (75-99)
[2018-04-27] MEDS: SODIUM CHLORIDE 0.9% 1,000 ML IV SCH (17:51)
[2018-04-27 20:44] LABS: Glucose,Whole Blood 292 mg/dL (75-99)
[2018-04-27] MEDS: ATORVASTATIN 10 MG TAB PO SCH (20:47)
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
[2018-04-28 06:04] LABS: Glucose,Whole Blood 238 mg/dL (75-99)
[2018-04-28] MEDS: METOPROLOL TARTRATE 50 MG TAB PO SCH ×2 (06:42→17:41)
[2018-04-28] MEDS: INSULIN ASPART (NovoLOG) 100 UNIT/ML VIAL SQ SCH ×4 (06:45→21:20)
[2018-04-28 06:57] LABS: Glucose,Whole Blood 257 mg/dL (75-99)
[2018-04-28] MEDS: IPRATROPIUM-ALBUTEROL 3 ML NEB INHALATION SCH ×4 (07:58→20:17)
[2018-04-28] MEDS: DEXTROSE 5% IN WATER 1,000 ML IV SCH ×2 (08:27→21:21)
[2018-04-28] MEDS: PANTOPRAZOLE 40 MG/10 ML VIAL IVP SCH ×2 (08:28→21:21)
[2018-04-28] MEDS: HYDROcodone/APAP 5-325MG 1 EACH TAB PO PRN (08:29)
[2018-04-28] MEDS: SPIRONOLACTONE 25 MG TAB PO SCH (08:30)
[2018-04-28 10:54] LABS: Glucose,Whole Blood 261 mg/dL (75-99)
[2018-04-28 14:16] LABS: Appearance,Urine Clear (Clear); Bilirubin,Urine Negative (Negative); Blood,Urine Negative (Negative); Color,Urine Yellow; Glucose,Urine (UA) Trace (Negative); Ketones,Urine Negative (Negative); Leukocyte Esterase,Urine Negative (Negative); Nitrite,Urine Negative (Negative); PH, Urine 5.5 (5.0-8.0); Protein,Urine Trace (Negative); Specific Gravity,Urine 1.018 (1.001-1.035)
[2018-04-28 16:57] LABS: Glucose,Whole Blood 241 mg/dL (75-99)
[2018-04-28] MEDS: TAMSULOSIN 0.4 MG CAP.ER.24H PO SCH (17:41)
[2018-04-28 20:33] LABS: Glucose,Whole Blood 260 mg/dL (75-99)
[2018-04-28] MEDS: ATORVASTATIN 10 MG TAB PO SCH (21:20)
[2018-04-28] MEDS: SODIUM CHLORIDE 0.9% 1,000 ML IV SCH (21:40)
[2018-04-28] MEDS: IPRATROPIUM-ALBUTEROL 3 ML NEB INHALATION PRN (23:15)
[2018-04-29 05:59] LABS: Glucose,Whole Blood 216 mg/dL (75-99)
[2018-04-29] MEDS: METOPROLOL TARTRATE 50 MG TAB PO SCH ×2 (06:06→17:27)
[2018-04-29] MEDS: INSULIN ASPART (NovoLOG) 100 UNIT/ML VIAL SQ SCH ×4 (06:06→21:30)
[2018-04-29 06:48] LABS: Anisocytosis Slight; HCT 38.8 % (39.0-53.0); MCH 25.6 pg (25.0-35.0); MCV 82.7 fL (80.0-100.0); Mean Platelet Volume 9.4; Platelet Count 204 k/uL (150-450); RBC 4.69 m/uL (4.30-5.90); RDW 16.8 % (11.5-15.5); WBC 22.6 k/uL (3.8-10.6)
[2018-04-29] MEDS: IPRATROPIUM-ALBUTEROL 3 ML NEB INHALATION SCH ×4 (06:51→20:54)
[2018-04-29 06:54] LABS: Calcium 8.4 mg/dL (8.4-10.2); Potassium 4.2 mmol/L (3.5-5.1)
[2018-04-29 07:29] LABS: Band Neutrophils % 6 %; Eosinophils # (M) 0.45 k/uL (0-0.7); Lymphocytes # (M) 1.81 k/uL (1.0-4.8); Monocytes # (M) 1.36 k/uL (0-1.0); Myelocytes # (M) 0.23 k/uL (0); Myelocytes % 1 %; Neutrophils % (M) 79 %; Nucleated Red Blood Cells 0 /100 WBC (0-0); Total Cells Counted 200
[2018-04-29 07:30] LABS: Large Platelets Present
[2018-04-29] MEDS: SPIRONOLACTONE 25 MG TAB PO SCH (08:20)
[2018-04-29] MEDS: DEXTROSE 5% IN WATER 1,000 ML IV SCH (08:20)
[2018-04-29] MEDS: PANTOPRAZOLE 40 MG/10 ML VIAL IVP SCH ×2 (08:20→20:29)
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
[2018-04-29 12:06] LABS: Glucose,Whole Blood 229 mg/dL (75-99)
[2018-04-29 16:06] LABS: Glucose,Whole Blood 218 mg/dL (75-99)
[2018-04-29] MEDS: TAMSULOSIN 0.4 MG CAP.ER.24H PO SCH (17:27)
[2018-04-29] MEDS ORDERED: SODIUM CHLORIDE 0.9% 1,000 ML IV SCH (20:15)
[2018-04-29] MEDS: ATORVASTATIN 10 MG TAB PO SCH (20:29)
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
[2018-04-29 20:41] LABS: Glucose,Whole Blood 230 mg/dL (75-99)
--- NOTE | 2018-04-30 00:48 | P.PN ---
Subjective Progress Note Date: 04/29/18 Principal diagnosis: Anemia, blood per rectum Patient tolerating diet. No nausea or vomiting. No reports of blood per rectum or melanotic stool. Objective - Vital Signs Vital signs: Vital Signs Temp 98.6 F 04/29/18 23:19 Pulse 105 H 04/29/18 23:25 Resp 21 04/29/18 23:25 BP 120/72 04/29/18 23:19 Pulse Ox 95 04/29/18 23:19 Intake & Output 04/29/18 04/29/18 04/30/18 06:59 18:59 06:59 Intake Total 320 530 440 Output Total 475 Balance -155 530 440 Weight 135.3 kg Intake: Intake, IV Titration 200 50 40 Amount Dextrose 5% in Water 1, 200 40 000 ml @ 40 mls/hr IV . Q24H BHAVANA Rx#:[id number] cefTRIAXone 1,000 mg In 50 Sodium Chloride 0.9% 50 ml @ 100 mls/hr IVPB Q24HR BHAVANA Rx#:[id number] Oral 120 480 400 Output: Urine 475 Straight 475 Other: Voiding Method Indwelling Catheter Indwelling Catheter Indwelling Catheter - Exam On physical examination, patient appears comfortable in no apparent distress. HEAD: Normocephalic, atraumatic. EYES: No scleral icterus. No conjunctival injection. MOUTH: No lesions, tongue midline. NECK: Trachea midline, no gross abnormalities. CHEST: Clear to auscultation with no wheezing or rhonchi appreciated. HEART: Regular rate S1S2 appreciated. ABDOMEN: Soft, obese. Bowel sounds are positive. No organomegaly. No guarding or rigidity. EXTREMITIES: No pedal edema. SKIN: No rashes, no jaundice. NEUROLOGIC: No focal deficits. - Labs CBC & Chem 7: 04/29/18 06:13 04/29/18 06:13 Labs: Abnormal Lab Results - Last 24 Hours (Table) 04/29/18 04/29/18 04/29/18 Range/Units 05:57 06:13 06:13 WBC 22.6 H (3.8-10.6) k/uL Hgb 12.0 L (13.0-17.5) gm/dL Hct 38.8 L (39.0-53.0) % RDW 16.8 H (11.5-15.5) % Neutrophils # (Manual) 19.20 H (1.3-7.7) k/uL Monocytes # (Manual) 1.36 H (0-1.0) k/uL Myelocytes # (Manual) 0.23 H (0) k/uL Sodium 131 L (137-145) mmol/L Carbon Dioxide 13 L (22-30) mmol/L BUN 58 H (9-20) mg/dL Creatinine 1.42 H (0.66-1.25) mg/dL Glucose 238 H (74-99) mg/dL POC Glucose (mg/dL) 216 H (75-99) mg/dL 04/29/18 04/29/18 04/29/18 Range/Units 11:47 16:04 20:21 WBC (3.8-10.6) k/uL Hgb (13.0-17.5) gm/dL Hct (39.0-53.0) % RDW (11.5-15.5) % Neutrophils # (Manual) (1.3-7.7) k/uL Monocytes # (Manual) (0-1.0) k/uL Myelocytes # (Manual) (0) k/uL Sodium (137-145) mmol/L Carbon Dioxide (22-30) mmol/L BUN (9-20) mg/dL Creatinine (0.66-1.25) mg/dL Glucose (74-99) mg/dL POC Glucose (mg/dL) 229 H 218 H 230 H (75-99) mg/dL Microbiology - Last 24 Hours (Table) 04/27/18 20:04 Blood Culture - Preliminary Blood No Growth after 48 hours 04/28/18 13:10 Urine Culture - Final Urine,Catheterized Assessment and Plan (1) Acute blood loss anemia Narrative/Plan: Hemoglobin has remained stable. With no signs or symptoms of GI bleeding. Current Visit: Yes Status: Acute Code(s): D62 - ACUTE POSTHEMORRHAGIC ANEMIA SNOMED Code(s): 605533981 (2) Atrial fibrillation with RVR Current Visit: Yes Status: Acute Code(s): I48.91 - UNSPECIFIED ATRIAL FIBRILLATION SNOMED Code(s): 214545050947308 (3) GI bleed Current Visit: Yes Status: Acute Code(s): K92.2 - GASTROINTESTINAL HEMORRHAGE, UNSPECIFIED SNOMED Code(s): 03212152 Plan: Supportive care Okay for diet Okay to resume anticoagulation therapy No signs or symptoms of GI bleeding, and no plans for endoscopic therapy at this time Monitor hemoglobin Monitor stool output Thank you for allowing us to participate in the care of this patient, the gastroenterology service will stand by, please call us back with any questions or concerns
[2018-04-30 03:25] VITALS: BP 123/72; RESP 26; TEMP 98.5
[2018-04-30] MEDS: IPRATROPIUM-ALBUTEROL 3 ML NEB INHALATION PRN (03:31)
[2018-04-30 03:46] VITALS: PULSE 113
[2018-04-30 04:00] LABS: Glucose,Whole Blood 211 mg/dL (75-99)
[2018-04-30] MEDS: METOPROLOL TARTRATE 50 MG TAB PO SCH (05:05)
[2018-04-30 05:52] LABS: Glucose,Whole Blood 245 mg/dL (75-99)
[2018-04-30 06:30] LABS: Anisocytosis Slight; HCT 39.5 % (39.0-53.0); HGB 12.4 gm/dL (13.0-17.5); MCH 26.3 pg (25.0-35.0); MCHC 31.5 g/dL (31.0-37.0); MCV 83.5 fL (80.0-100.0); Mean Platelet Volume 9.3; Platelet Count 216 k/uL (150-450); RBC 4.73 m/uL (4.30-5.90); RDW 17.1 % (11.5-15.5)
[2018-04-30 06:37] LABS: Calcium 8.3 mg/dL (8.4-10.2); Potassium 5.2 mmol/L (3.5-5.1)
[2018-04-30] MEDS: INSULIN ASPART (NovoLOG) 100 UNIT/ML VIAL SQ SCH (06:42)
[2018-04-30 07:23] LABS: Band Neutrophils % 7 %; Lymphocytes # (M) 1.75 k/uL (1.0-4.8); Neutrophils % (M) 82 %; Nucleated Red Blood Cells 0 /100 WBC (0-0); Total Cells Counted 100
[2018-04-30 07:24] LABS: Large Platelets Present
[2018-04-30] MEDS ORDERED: DEXTROSE 10 % IN WATER 250 ML BAG IV ONE (07:45)
[2018-04-30] MEDS ORDERED: CALCIUM CHLORIDE 100 MG/ML 10 ML SYRINGE ONE (07:45)
[2018-04-30] MEDS ORDERED: SODIUM BICARB 8.4% 50 ML SYR (1 MEQ/ML) ONE (07:45)
[2018-04-30] MEDS ORDERED: AMIODARONE 50 MG/ML 3 ML VIAL IV ONE ×2 (07:45)
[2018-04-30] MEDS ORDERED: DEXTROSE 5% IN WATER 50 ML BAG ONE (07:45)
[2018-04-30] MEDS ORDERED: EPINEPHrine 10 ML SYRINGE (0.1 MG/ML) ONE (07:45)
[2018-04-30 08:09] LABS: Glucose,Whole Blood 267 mg/dL (75-99)
[2018-04-30] MEDS: IPRATROPIUM-ALBUTEROL 3 ML NEB INHALATION SCH (09:24)
[2018-04-30 11:15] VITALS: BMI 42.7
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
--- NOTE | 2018-05-02 07:49 | CDI ---
Documentation Clarification Form Date: 05/02/18 From: Anu Riley Phone: If you have a question regarding this query, please contact Kaylan Marroquin at [phone] between 8am and 5pm. Admit Date: 04/22/2018 1:02:00 AM Patient Name: Patrick Proctor Visit Number: [id number] Discharge Date: 04/30/2018 12:47:00 PM ATTENTION: The Clinical Documentation Specialists (CDI) and [facility] Coding Staff appreciate your assistance in clarifying documentation. Please respond to the clarification below the line at the bottom and electronically sign. The CDI & [facility] Coding staff will review the response and follow-up if needed. Please note: Queries are made part of the Legal Health Record. If you have any questions, please contact the author of this message via ITS. Dr. Adelaida Lawson Patient has a past medical history of CHF which is documented in the ED note, H& P, both consult notes and Rossi Renteria 04/25 progress note. History/Risk Factors: Patient was admitted with diabetic keotacidosis, dehydration, GI bleed and hyponatremia. Clinical Indicators: Pleural effusion noted on the abdominal CAT scan. No edema noted. No shortness of breath. VS/Pulse OX: T. 97.3, P. 99, R. 18, BP 185/136 BNP: Not tested. Echocardiogram Results: Overall left ventricular systolic function is low- normal with, an EF between 50 - 55%. Chest X Ray: No heart failure seen. Treatment: Patient was on Lasix at home. In your professional opinion, can you please clarify the type of CHF if known? Systolic Heart Failure: Diastolic Heart Failure: Systolic & Diastolic Heart Failure: Unable to Determine Other, please specify chronic Diastolic Heart Failure: MTDD
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
--- NOTE | 2018-05-09 14:54 | CDI ---
Documentation Clarification Form Date: 05/09/2018 2:36:02 PM From: Carmen GAINES,RN,CCDS Email: [email or web address] Admit Date: 04/22/2018 1:02:00 AM Patient Name: Patrick Proctor Visit Number: [id number] Discharge Date: 04/30/2018 12:47:00 PM ATTENTION: The Clinical Documentation Specialists (CDI) and [facility] Coding Staff appreciate your assistance in clarifying documentation. Please respond to the clarification below the line at the bottom and electronically sign. The CDI & [facility] Coding staff will review the response and follow-up if needed. Please note: Queries are made part of the Legal Health Record. If you have any questions, please contact the author of this message via ITS. Dr. Adelaida Lawson Documentation states: afib, bradycardia, cardiac arrhythmia, possibly secondary to coronary atherosclerosis History/Risk Factors: presented with DKA, Afib with RVR with hx of afib on Xarelto, Abd pain and GIB. PMH of CHF,afib, DM2,Hyperlipidemia Clinical indicators: PN 04/26 worseing pulmonary function now requiring 3 Lnc Code blue with asystole on 04/30/2018 Troponin 04/25 of 0.068 and 04/26 of 0.054 ECHO EF 50-55% Treament; Lopressor, supplemetnal O2 Clinical significance of diagnostic testing and treatment CANNOT be assumed or coded without physician documentation of significance if any. Abnormal Lab Value not clinically signficant Demand Ischemia NSTEMI Unable to determine Other, please specify (Last Revision: January 2017) MTDD
== END 2018-04-30 12:47 | disposition expired | DRG 637 ==
LOC: EC 20:12 → 3SCARD 04-22 01:02
PROVIDERS: ADMIT Hospitalist; ATTEND Hospitalist
PROC: 5A1935Z Respiratory Ventilation, Less than 24 Consecutive Hours (ICD-10-PCS; principal; 2018-04-30)
PROC: 0BH17EZ Insertion of Endotracheal Airway into Trachea, Via Natural or Artificial Opening (ICD-10-PCS; 2018-04-30)
DX: E11.10 Type 2 diabetes mellitus with ketoacidosis without coma (principal); K57.91 Diverticulosis of intestine, part unspecified, without perforation or abscess with bleeding; D62 Acute posthemorrhagic anemia; E87.1 Hypo-osmolality and hyponatremia; K92.2 Gastrointestinal hemorrhage, unspecified; K55.9 Vascular disorder of intestine, unspecified; I50.32 Chronic diastolic (congestive) heart failure; I46.9 Cardiac arrest, cause unspecified; I48.0 Paroxysmal atrial fibrillation; I95.9 Hypotension, unspecified; E86.0 Dehydration; R00.1 Bradycardia, unspecified; E78.5 Hyperlipidemia, unspecified; J40 Bronchitis, not specified as acute or chronic; H91.90 Unspecified hearing loss, unspecified ear; I25.10 Atherosclerotic heart disease of native coronary artery without angina pectoris; H54.7 Unspecified visual loss; D72.829 Elevated white blood cell count, unspecified; Z79.01 Long term (current) use of anticoagulants; Z79.84 Long term (current) use of oral hypoglycemic drugs; Z79.899 Other long term (current) drug therapy; Z86.73 Personal history of transient ischemic attack (TIA), and cerebral infarction without residual deficits; Z80.9 Family history of malignant neoplasm, unspecified
CPT/HCPCS: 36415; 70450; 71045; 71046; 74177; 80048; 80051; 80053; 80306; 81001; 81003; 82009; 82150; 82272; 82565; 82947; 83036; 83605; 83690; 83735; 84100; 84484; 84520; 85025; 85610; 85730; 87040; 87086; 93306; 94002; 94640; 96361; 96374; 96375; 96376; 99285